=== PATIENT | male | born 1980 | race Caucasian/White ===

== ENCOUNTER 2022-07-24 18:42 | Emergency (ER) | payer SELFPAY ==
[~2022-07-24] VITALS: Ht 177.8 cm; Wt 86.4 kg
[~2022-07-24 18:42] MED LIST: NOCURR
[2022-07-24 21:25] VITALS: BP 130/79
== END 2022-07-24 21:27 | disposition home or self-care (01) ==
LOC: EMS 18:42
DX: F41.0 Panic disorder [episodic paroxysmal anxiety] (principal); J45.909 Unspecified asthma, uncomplicated; F17.210 Nicotine dependence, cigarettes, uncomplicated; F15.10 Other stimulant abuse, uncomplicated; F31.9 Bipolar disorder, unspecified; F19.10 Other psychoactive substance abuse, uncomplicated
CPT/HCPCS: 99281; Z7502